=== PATIENT | female | born 1970 ===

== ENCOUNTER 2021-06-14 07:07 | Emergency (ER) | payer MEDICAID ==
[~2021-06-14] VITALS: Ht 170.2 cm; Wt 61.0 kg
[2021-06-14 07:22] VITALS: BP 197/125
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
== END 2021-06-14 08:27 | disposition left against medical advice (07) ==
LOC: ER 07:08
DX: M54.9 Dorsalgia, unspecified (principal); Z53.21 Procedure and treatment not carried out due to patient leaving prior to being seen by health care provider